=== PATIENT | male | born 1970 | race Hispanic/Latino ===

== ENCOUNTER 2023-08-06 07:52 | Inpatient (IN) | payer OTHER ==
[~2023-08-06] VITALS: Ht 172.7 cm; Wt 109.2 kg
[2023-08-06 08:19] LABS: BASOPHILS # (AUTO) 0.09 K/uL (0.00-0.20); EOSINOPHILS # (AUTO) 0.16 K/uL (0.00-0.70); EOSINOPHILS % (AUTO) 1.9 % (0.0-8.0); IMMATURE GRANULOCYTE ABSOLUTE 0.04 K/uL (0-1); LYMPHOCYTES # (AUTO) 1.5 K/uL (1.0-4.8); LYMPHOCYTES % (AUTO) 16.9 % (21.0-51.0); MEAN CORPUSCULAR HEMOGLOBIN 28.2 pg (27.0-33.0); MEAN CORPUSCULAR HGB CONC 34.5 g/dL (32.0-36.0); MEAN CORPUSCULAR VOLUME 81.7 fL (79-99); MONOCYTES # (AUTO) 0.7 K/uL (0.1-1.0); MONOCYTES % (AUTO) 8.2 % (3.0-13.0); NEUTROPHILS # (AUTO) 6.2 K/uL (1.8-7.7); NEUTROPHILS % (AUTO) 71.5 % (40.0-77.0); PLATELET COUNT (AUTO) 212 K/uL (130-400); RED CELL DISTRIBUTION WIDTH 12.8 % (11.0-15.5); WHITE BLOOD COUNT (AUTO) 8.6 K/uL (4.8-10.8)
[2023-08-06 08:24] LABS: APPEARANCE,URINE CLEAR (CLEAR); BILIRUBIN,URINE NEGATIVE (NEGATIVE); COLOR,URINE COLORLESS (YELLOW); GLUCOSE, URINE (UA) NEGATIVE (NEGATIVE); KETONES,URINE NEGATIVE (NEGATIVE); LEUKOCYTE ESTERASE ,URINE NEGATIVE Leu/uL (NEGATIVE); NITRATE,URINE NEGATIVE (NEGATIVE); OCCULT BLOOD,URINE NEGATIVE (NEGATIVE); PROTEIN,URINE NEGATIVE (NEGATIVE); UROBILINOGEN,URINE 0.2 mg/dL (0.2-1.0)
[2023-08-06 08:26] LABS: RBC,URINE 0-1 /HPF (0-1)
[2023-08-06 08:29] LABS: CREATININE 0.8 mg/dL (0.5-1.3); POTASSIUM 3.7 mmol/L (3.5-5.1)
[2023-08-06] MEDS: NIFEDIPINE 10 MG CAP PO ONE (08:57)
[2023-08-06] MEDS: NIFEDIPINE 10 MG CAP ONE (08:57)
[2023-08-06] MEDS: LEVOFLOXACIN 500 MG/D5W 100 ML 100 ML IV STA (09:35)
[2023-08-06] MEDS ORDERED: VANCOMYCIN PROTOCOL PER PHARMACY IV SCH (10:08)
[2023-08-06] MEDS: VANCOMYCIN 2GM/500 ML BAG 500 ML IV ONE (10:27)
[2023-08-06] MEDS ORDERED: VANCOMYCIN KIT 1 GM/250 ML IV.KIT IV ONE (10:30)
[2023-08-06 12:16] LABS: HEMOGLOBIN A1C 6.2 % (4.0-6.0)
[2023-08-06] MEDS ORDERED: MORPHINE 2 MG SYG IVP PRN (12:30)
[2023-08-06] MEDS ORDERED: ONDANSETRON 4MG INJ IVP PRN (12:30)
[2023-08-06] MEDS ORDERED: DOXYCYCLINE HYCLATE 100 MG TABLET PO SCH (13:00)
[2023-08-06] MEDS ORDERED: CEFTRIAXONE 1G VIAL IVPB SCH (13:00)
[2023-08-06 16:00] VITALS: BP 177/91; PULSE 70; RESP 18
[2023-08-06] MEDS: INSULIN HUMULIN R 100 UNIT/ML 3ML SQ SCH (16:30)
[2023-08-06] MEDS: CEFEPIME HCL 1 GM VIAL IVPB SCH (17:20)
[2023-08-06 20:00] VITALS: BP 154/90; PULSE 68; RESP 19
[2023-08-06 20:15] VITALS: O2SAT 94
[2023-08-06] MEDS: FAMOTIDINE 20MG TAB PO SCH (20:15)
[2023-08-07] VITALS (8 sets, daily range): BP systolic 137–187; BP diastolic 75–98; PULSE 58–74; RESP 18–20; O2SAT 97–99
[2023-08-07] MEDS: VANCOMYCIN 1.5 GM/250 ML BAG 250 ML IV SCH (00:51)
[2023-08-07] MEDS: ENOXAPARIN SODIUM 40 MG/0.4 ML SYRINGE SQ SCH (08:33)
[2023-08-07 09:47] LABS: BASOPHILS % (AUTO) 1.5 % (0.0-5.0); EOSINOPHILS # (AUTO) 0.23 K/uL (0.00-0.70); EOSINOPHILS % (AUTO) 3.5 % (0.0-8.0); HEMATOCRIT 48.8 % (42-54); IMMATURE GRANULOCYTE ABSOLUTE 0.02 K/uL (0-1); LYMPHOCYTES # (AUTO) 1.3 K/uL (1.0-4.8); LYMPHOCYTES % (AUTO) 20.2 % (21.0-51.0); MEAN CORPUSCULAR HGB CONC 33.6 g/dL (32.0-36.0); MEAN CORPUSCULAR VOLUME 83.3 fL (79-99); MONOCYTES # (AUTO) 0.5 K/uL (0.1-1.0); MONOCYTES % (AUTO) 7.3 % (3.0-13.0); NEUTROPHILS # (AUTO) 4.4 K/uL (1.8-7.7); NEUTROPHILS % (AUTO) 67.2 % (40.0-77.0); PLATELET COUNT (AUTO) 198 K/uL (130-400); RED BLOOD CELL COUNT(AUTO) 5.86 MIL/uL (4.50-6.20); RED CELL DISTRIBUTION WIDTH 12.7 % (11.0-15.5); WHITE BLOOD COUNT (AUTO) 6.6 K/uL (4.8-10.8)
[2023-08-07 10:00] LABS: CREATININE 0.9 mg/dL (0.5-1.3); POTASSIUM 3.6 mmol/L (3.5-5.1); VANCOMYCIN TROUGH 13.2 UG/ML (10.0-20.0)
[2023-08-07] MEDS ORDERED: POTASSIUM CHLORIDE 10% ELIXIR 20 MEQ/15 ML UDCUP PO PRN (12:00)
[2023-08-07] MEDS ORDERED: POTASSIUM CHLORIDE 20MEQ/100ML 100 ML IV PRN ×2 (12:00)
[2023-08-07 13:10] LABS: HEMOGLOBIN A1C 6.2 % (4.0-6.0)
[2023-08-07] MEDS: KCL 20 MEQ ERTAB PO PRN (13:35)
[2023-08-08] VITALS (9 sets, daily range): BP systolic 153–179; BP diastolic 68–98; PULSE 69–92; RESP 18–20; O2SAT 98–100
[2023-08-08] MEDS: HYDRALAZINE 20MG/ML VIAL IV ONE (02:01)
[2023-08-08 05:14] LABS: BASOPHILS # (AUTO) 0.08 K/uL (0.00-0.20); BASOPHILS % (AUTO) 0.9 % (0.0-5.0); EOSINOPHILS # (AUTO) 0.32 K/uL (0.00-0.70); EOSINOPHILS % (AUTO) 3.7 % (0.0-8.0); HEMATOCRIT 48.4 % (42-54); IMMATURE GRANULOCYTE ABSOLUTE 0.04 K/uL (0-1); LYMPHOCYTES # (AUTO) 1.6 K/uL (1.0-4.8); LYMPHOCYTES % (AUTO) 18.9 % (21.0-51.0); MEAN CORPUSCULAR HEMOGLOBIN 27.8 pg (27.0-33.0); MEAN CORPUSCULAR HGB CONC 33.9 g/dL (32.0-36.0); MEAN CORPUSCULAR VOLUME 82.2 fL (79-99); MONOCYTES # (AUTO) 0.7 K/uL (0.1-1.0); MONOCYTES % (AUTO) 7.5 % (3.0-13.0); NEUTROPHILS # (AUTO) 5.9 K/uL (1.8-7.7); NEUTROPHILS % (AUTO) 68.5 % (40.0-77.0); PLATELET COUNT (AUTO) 214 K/uL (130-400); RED BLOOD CELL COUNT(AUTO) 5.89 MIL/uL (4.50-6.20); RED CELL DISTRIBUTION WIDTH 12.8 % (11.0-15.5); WHITE BLOOD COUNT (AUTO) 8.7 K/uL (4.8-10.8)
[2023-08-08 05:35] LABS: CREATININE 0.9 mg/dL (0.5-1.3); POTASSIUM 3.6 mmol/L (3.5-5.1)
[2023-08-08 10:25] LABS: ALBUMIN 3.3 g/dL (3.5-5.0); BILIRUBIN,DIRECT 0.2 mg/dL (0.0-0.3); BILIRUBIN,TOTAL 1.1 mg/dL (0.2-1.0); TOTAL PROTEIN, SERUM 7.5 g/dL (6.0-8.3)
[2023-08-08] MEDS: AMLODIPINE 5 MG TAB PO SCH (11:32)
[2023-08-08] MEDS: LOSARTAN 50 MG TABLET PO SCH (11:32)
[2023-08-08] MEDS: HYDRALAZINE 20MG/ML VIAL IV PRN (17:01)
[2023-08-08] MEDS ORDERED: AMLODIPINE 5 MG TAB PO SCH (21:00)
[2023-08-09] MEDS: ACETAMINOPHEN 325 MG TAB PO PRN (00:54)
[2023-08-09 00:58] VITALS: BP 161/100; PULSE 91
[2023-08-09 04:00] VITALS: BP 145/85; PULSE 88; RESP 20
[2023-08-09 05:39] LABS: BASOPHILS # (AUTO) 0.08 K/uL (0.00-0.20); BASOPHILS % (AUTO) 1.2 % (0.0-5.0); EOSINOPHILS # (AUTO) 0.24 K/uL (0.00-0.70); EOSINOPHILS % (AUTO) 3.6 % (0.0-8.0); HEMATOCRIT 50.2 % (42-54); IMMATURE GRANULOCYTE ABSOLUTE 0.04 K/uL (0-1); LYMPHOCYTES # (AUTO) 1.4 K/uL (1.0-4.8); LYMPHOCYTES % (AUTO) 20.5 % (21.0-51.0); MEAN CORPUSCULAR HEMOGLOBIN 27.7 pg (27.0-33.0); MEAN CORPUSCULAR HGB CONC 32.9 g/dL (32.0-36.0); MEAN CORPUSCULAR VOLUME 84.4 fL (79-99); MONOCYTES # (AUTO) 0.7 K/uL (0.1-1.0); MONOCYTES % (AUTO) 10.2 % (3.0-13.0); NEUTROPHILS # (AUTO) 4.2 K/uL (1.8-7.7); NEUTROPHILS % (AUTO) 63.9 % (40.0-77.0); PLATELET COUNT (AUTO) 205 K/uL (130-400); RED BLOOD CELL COUNT(AUTO) 5.95 MIL/uL (4.50-6.20); RED CELL DISTRIBUTION WIDTH 13.1 % (11.0-15.5); WHITE BLOOD COUNT (AUTO) 6.6 K/uL (4.8-10.8)
[2023-08-09 05:59] LABS: ALBUMIN 3.2 g/dL (3.5-5.0); BILIRUBIN,TOTAL 1.4 mg/dL (0.2-1.0); CREATININE 0.9 mg/dL (0.5-1.3); POTASSIUM 3.9 mmol/L (3.5-5.1); TOTAL PROTEIN, SERUM 7.4 g/dL (6.0-8.3)
[2023-08-09 08:00] VITALS: BP 154/84; PULSE 90; RESP 16; O2SAT 96
[2023-08-09] MEDS ORDERED: AMOX1TAB16 PO (09:45)
[2023-08-09] MEDS ORDERED: LOSA100T59 PO (09:45)
[2023-08-09] MEDS ORDERED: AMLO-258 PO (09:45)
== END 2023-08-09 13:25 | disposition home or self-care (01) | DRG 603 ==
LOC: EDH 07:52 → EDHIP 07:53 → 3CH 12:52
PROVIDERS: ADMIT Internal Medicine; ATTEND Internal Medicine
DX: L03.818 Cellulitis of other sites (principal); K61.0 Anal abscess; E87.1 Hypo-osmolality and hyponatremia; E11.52 Type 2 diabetes mellitus with diabetic peripheral angiopathy with gangrene; L02.215 Cutaneous abscess of perineum; E66.9 Obesity, unspecified; F17.210 Nicotine dependence, cigarettes, uncomplicated; I16.0 Hypertensive urgency; N49.2 Inflammatory disorders of scrotum; N49.3 Fournier gangrene; Z56.0 Unemployment, unspecified; Z68.36 Body mass index [BMI] 36.0-36.9, adult; Z79.899 Other long term (current) drug therapy
CPT/HCPCS: 36415; 76870; 80048; 80053; 80076; 80202; 81001; 82948; 83036; 85025; 87040; 87491; 87591; 96365; 99291; G0378; J0360; J0692; J1650; J1956; J3370